=== PATIENT | male | born 1990 | race Caucasian/White ===

== ENCOUNTER 2019-11-22 08:46 | Outpatient (CLI) | payer BC, SELFPAY ==
--- NOTE | ~2019-11-22 | MR_ITS ---
EXAMINATION: MR pituitary wo/w con EXAM DATE: 11/22/2019 10:57 INDICATION: Shoulder hypofunction. TECHNIQUE: Magnetic resonance imaging (MRI) of the brain/brain stem obtained without contrast. Sagit dave T1, axial diffusion, gradient echo (T2*), T1, T2, FLAIR sequences obtained. Patient was then inj ected with 20 cc intravenous Multihance contrast. Axial and coronal postcontrast T1 weighted sequence s obtained. A pituitary protocol was utilized including dynamic imaging through the pituitary gland d uring intravenous injection of contrast. There are no prior studies for comparison. FINDINGS: The pituitary gland is confined to the sella turcica. Suprasellar region normal in appear ance. The optic chiasm normal. Infundibulum is midline. No definite pituitary microadenoma identif ied. Please note small microadenomas can cause endocrine abnormalities but are not always identified by imaging even using dedicated pituitary protocol. This does exclude macroadenoma or need for surg ical management. 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 Mild to moderate right, mild left maxillary sinu s mucoperiosteal thickening. There are no areas of restricted diffusion to suggest acute infarction. There is no acute hemorrhage seen on the T2*, a hemosiderin sensitive sequence. No intraparenchymal brain mass. The ventricles are normal in size. There are no extra-axial collections. Flow voids ar e seen in the cerebral arteries on the T2-weighted sequences consistent with their expected patency. The orbits are unremarkable. Soft tissue is unremarkable. There are no areas of abnormal enhancem ent on the post contrast images. IMPRESSION: Unremarkable pituitary and brain MRI exam. Reviewed, dictated and finalized at location A.
[2019-11-22 09:54] LABS: Estimated Glomerular Filt Rate > 60
== END 2019-11-22 08:47 | disposition home or self-care (01) ==
PROVIDERS: PCP Internal Medicine; Visit Provider Internal Medicine
DX: E29.1 Testicular hypofunction (principal)
CPT/HCPCS: 36415; 70553; A9577

== ENCOUNTER 2021-06-22 08:55 | Outpatient (CLI) | payer BC, SELFPAY ==
[2021-06-22 10:30] LABS: Basophils Percent Auto 0.5 % (0.2-1.2); Eosinophils Absolute Auto 0.3 K/mm3 (0-0.3); Eosinophils Percent Auto 3.7 % (0-4.4); Hematocrit 51.6 % (42.0-52.0); Hemoglobin 17.4 g/dL (14.0-18.0); Immature Granulocyte Absolute 0.02 K/mm3 (0.00-0.031); Immature Granulocyte Percent A 0.2 % (0-0.5); Lymphocytes Absolute Auto 2.18 K/mm3 (0.9-3.2); Lymphocytes Percent Auto 26.8 % (18.3-44.2); Mean Corpuscular HGB Conc 33.7 g/dl (32-36); Mean Corpuscular Hemoglobin 29.5 pg (26-34); Mean Corpuscular Volume 87.5 fl (80-100); Mean Platelet Volume 11.1 fl (7.4-10.4); Monocytes Absolute Auto 0.6 K/mm3 (0.1-0.6); Monocytes Percent Auto 7.4 % (2.6-8.5); Neutrophils Percent Auto 61.4 % (45.5-73.1); Platelet Count Result 261 k/mm3 (150-375); Red Cell Distribution Width 12.3 % (11.5-14.5); White Blood Count 8.1 K/mm3 (4.5-10.0)
[2021-06-22 10:49] LABS: Alanine Aminotransferase 29 U/L (4-50); Albumin Level 4.7 g/dL (3.5-5.1); Alkaline Phosphatase 57 U/L (38-126); Anion Gap 7 mmol/L (8-16); Aspartate Amino Transferase 27 U/L (17-59); Bilirubin,Total 0.4 mg/dL (0.2-1.3); Blood Urea Nitrogen 14 mg/dL (9-20); Calcium 9.3 mg/dL (8.4-10.2); Carbon Dioxide 32 mmol/L (22-30); Chloride 100 mmol/L (98-107); Cholesterol 206 mg/dL (0-200); Estimated Glomerular Filt Rate > 60; Glucose 96 mg/dL (65-110); HDL Direct 41 mg/dL; Potassium 4.4 mmol/L (3.4-5.0); Sodium 139 mmol/L (137-145); Triglycerides 78 mg/dL (<150)
[2021-06-22 10:59] LABS: LDL Cholesterol Direct 151 mg/dL
[2021-06-22 11:45] LABS: Vitamin D 25 Hydroxy 32.6 ng/mL
[2021-06-26 15:58] LABS: Testosterone Free 95.5 pg/mL (35.0-155.0); Testosterone Total 390 ng/dL (250-1100)
== END 2021-06-22 08:56 | disposition home or self-care (01) ==
PROVIDERS: PCP Internal Medicine; Visit Provider Internal Medicine
DX: E29.1 Testicular hypofunction (principal); E55.9 Vitamin D deficiency, unspecified; Z13.220 Encounter for screening for lipoid disorders; Z13.228 Encounter for screening for other metabolic disorders
CPT/HCPCS: 36415; 80053; 80061; 82306; 84402; 84403; 85025

== ENCOUNTER 2021-08-23 07:35 | Outpatient (CLI) | payer BC, SELFPAY ==
--- NOTE | 2021-08-27 13:40 | WPDHOMESLEEP ---
Sleep Study - Home Unattended Date of Study: 08/23/21 <Kalyani Carver, DO - Last Filed: 08/27/21 13:55> Ordering Provider: Carlos Bates DO <Kalyani Carver, DO - Last Filed: 08/27/21 13:55> Interpreting Provider: Kalyani Carver DO <Kalyani Carver DO - Last Filed: 08/27/21 13:55> Home Sleep Study Type: Apnea Link Air <Kalyani Carver DO - Last Filed: 08/27/21 13:55> Height: 1.68 m <Kalyani Carver DO - Last Filed: 08/27/21 13:55> Weight: 117.934 kg <Kalyani Carver DO - Last Filed: 08/27/21 13:55> Body Mass Index: 41.9 <Kalyani Carver DO - Last Filed: 08/27/21 13:55> Neck Circumference (inches): 18 <Kalyani Carver DO - Last Filed: 08/27/21 13:55> [place]: 9 <Kalyani Carver DO - Last Filed: 08/27/21 13:55> Reason for Sleep Study Morning headaches, unrefreshing sleep and multiple nighttime awakenings. <Kalyani Carver DO - Last Filed: 08/27/21 13:55> Sleep History The patient is a 31-year-old male with hypogonadism that had a home sleep test ordered by his primary care physician due to loud snoring, morning headaches, unrefreshing sleep and multiple nighttime awakenings. This is been going on for 1-2 years. The patient denies awakening from sleep short of breath. He denies awakening at night with heartburn, belching or cough. He frequently snores and it is constantly loud enough that others complain. He occasionally has trouble sleeping when he has a cold. He denies waking up gasping for air throughout the night. He denies having breathing problems at night observed by himself or others. He constantly sweats excessively at night. He rarely notices heart palpitations or irregular heartbeats during the night. He rarely falls asleep during the day and never while driving. He denies sleep paralysis and cataplexy. He rarely has trouble at work due to sleepiness. He occasionally experiences vivid dreamlike scenes upon awakening or falling asleep. He occasionally has nightmares. He occasionally has thoughts racing through his mind. He occasionally feels sad or depressed but rarely feels anxious. He frequently notices parts of his body jerk. He rarely kicks during the night. He denies crawling and aching feelings in his legs as well as leg pain during the night. He denies grinding his teeth during sleep and awakening with morning jaw pain. He denies being bothered by pain during the day and being awakened by pain during the night. He occasionally wakes up feeling stiff in the morning with sore and achy muscles. He goes to bed between 930 and 10:00 p.m. on weekdays and between 10 and 11:00 p.m. on weekends. It takes him 2-3 minutes to fall asleep. He wakes up between 2 and 3 times per night. When he awakens, he will try to go back to sleep. He can fall asleep within 5-45 minutes. He awakens at 4:45 a.m. on weekdays and between 6 and 7:00 a.m. on the weekends. He typically gets between 4 and 6 hours of sleep per night. He will stay in bed for 10-15 minutes after awakening in the morning. He currently lives with his and 4 children. He does not consume any caffeinated beverages within 2 hours of bedtime. He does not engage in physical exercise before bedtime. He does not read before falling asleep. He will watch television before falling asleep. He does not take naps in the afternoon or the evening. He will have 2 caffeinated beverages per day. He denies tobacco, alcohol and recreational drug use. <Kalyani Carver DO - Last Filed: 08/27/21 13:55> [facility] Past Medical History Medical History: Medical History Secondary male hypogonadism <Kalyani Carver DO - Last Filed: 08/27/21 13:55> Surgical History Surgical History: Surgical History History of orthopedic surger
[2021-08-27 13:54] VITALS: BMI 41.9
== END 2021-08-24 11:22 | disposition home or self-care (01) ==
LOC: ANHCSM 07:35
PROVIDERS: PCP Internal Medicine; Visit Provider Internal Medicine
DX: G47.10 Hypersomnia, unspecified (principal); G47.9 Sleep disorder, unspecified
CPT/HCPCS: 95806

== ENCOUNTER → 2021-09-12 02:46 | Outpatient (CLI) | payer BC, SELFPAY ==
[2021-09-13 20:55] LABS: SARS-CoV-2 RNA PCR Negative
== END ==
PROVIDERS: PCP Internal Medicine; Visit Provider Family Medicine
DX: U07.1 COVID-19 (principal); Z20.822 Contact with and (suspected) exposure to COVID-19
CPT/HCPCS: C9803; U0003; U0005

== ENCOUNTER 2021-09-14 08:06 | Outpatient (CLI) | payer BC, SELFPAY ==
--- NOTE | 2021-09-24 11:20 | WPDSLEEPSTUD ---
Sleep Study Date of Study: 09/14/21 Ordering Provider: Carlos Bates DO Interpreting Physician: Laura Hurd MD Sleep Study Type: Polysomnogram Height: 1.68 m Weight: 113.398 kg Body Mass Index: 40.3 Neck Circumference (inches): 17.5 [place]: 5 Reason for Sleep Study witnessed apnea per his ; hypersomnia, snoring, morning headaches and poor quality sleep * 08/23/2021 Home sleep apnea test with AHI 4.6 which is just below the cut off for sleep apnea (AHI of 5). The patient's symptoms are consistent with sleep-disordered breathing. I recommend that the patient be scheduled for an in-lab Split Study. Sleep History Tiago Almodovar is a 31 year old man with hypogonadism that had a home sleep test ordered by his primary care physician due to loud snoring, morning headaches, unrefreshing sleep and multiple nighttime awakenings. This is been going on for 1-2 years. The patient denies awakening from sleep short of breath. He denies awakening at night with heartburn, belching or cough. He frequently snores and it is constantly loud enough that others complain. His has reported that he stops breathing at night. He occasionally has trouble sleeping when he has a cold. He denies waking up gasping for air throughout the night. He denies having breathing problems at night observed by himself or others. He constantly sweats excessively at night. He rarely notices heart palpitations or irregular heartbeats during the night. He rarely falls asleep during the day and never while driving. He denies sleep paralysis and cataplexy. He rarely has trouble at work due to sleepiness. He occasionally experiences vivid dreamlike scenes upon awakening or falling asleep. He occasionally has nightmares. He occasionally has thoughts racing through his mind. He occasionally feels sad or depressed but rarely feels anxious. He frequently notices parts of his body jerk. He rarely kicks during the night. He denies crawling and aching feelings in his legs as well as leg pain during the night. He denies grinding his teeth during sleep and awakening with morning jaw pain. He denies being bothered by pain during the day and being awakened by pain during the night. He occasionally wakes up feeling stiff in the morning with sore and achy muscles. Normal bedtime is between 9:30 and 10:00 p.m. on weekdays and between 10 and 11:00 p.m. on weekends. It takes him 2-3 minutes to fall asleep. He wakes up between 2 and 3 times per night. When he awakens, he will try to go back to sleep. He can fall asleep within 5-45 minutes. He awakens at 4:45 a.m. on weekdays and between 6 and 7:00 a.m. on the weekends. He typically gets between 4 and 6 hours of sleep per night. He will stay in bed for 10-15 minutes after awakening in the morning. He currently lives with his and 4 children. He does not consume any caffeinated beverages within 2 hours of bedtime. He does not engage in physical exercise before bedtime. He does not read before falling asleep. He will watch television before falling asleep. He does not take naps in the afternoon or the evening. Habits: He will have 2 caffeinated beverages per day. He denies tobacco, alcohol and recreational drug use. [facility] Past Medical History Medical History Secondary male hypogonadism Surgical History Surgical History History of orthopedic surgery SLAP x 2 2012 and 2014 History of orthopedic surgery bicep and tendon 2016 Family History Family History Mother Patient's mother is in good health Father Patient's father is in good health Sibling Patient's sister is in good health Patient's brother is in good health Social History Social History Smoking status: Never smoker Alcohol intak
[2021-09-24 13:24] VITALS: BMI 40.3
== END 2021-09-15 07:06 | disposition home or self-care (01) ==
PROVIDERS: PCP Internal Medicine; Visit Provider Internal Medicine
DX: G47.10 Hypersomnia, unspecified (principal); G47.33 Obstructive sleep apnea (adult) (pediatric)
CPT/HCPCS: 95810